=== PATIENT | male | born 1945 | race Caucasian/White ===

== ENCOUNTER 2017-07-01 09:23 | Outpatient (CLI) | payer MEDICARE ==
--- NOTE | 2017-07-01 11:52 | RAD ---
CERVICAL SPINE: A total of 6 views. INDICATION: Spondylosis of cervical spine. Moderate degenerative changes are noted. There is mild posterior listhesis of C4 on C5 measured at a pproximately 3-4 mm. Loss of disk space at C3-4 and C4-5. Mild anterior osteophytes. Posterior spo ndylitic change. No evidence of vertebral body compression. The posterior listhesis at C4-5 appears to reduce with extension. No significant change with flexion . IMPRESSION: Moderate degenerative changes of the cervical spine most prominent at C3-4 and C4-5 levels. There is mild posterior subluxation at C4-5 as described. POS: [facility]
== END 2017-07-01 09:24 | disposition home or self-care (01) ==
LOC: RAD 09:23
PROVIDERS: ATTEND Specialist
DX: M47.812 Spondylosis without myelopathy or radiculopathy, cervical region (principal); S13.150A Subluxation of C4/C5 cervical vertebrae, initial encounter
CPT/HCPCS: 72050

== ENCOUNTER 2017-09-08 15:59 | Inpatient (IN) | payer MEDICARE ==
[2017-09-08 17:08] VITALS: BMI 24.6
[2017-09-08] MEDS ORDERED: Loratadine 10 MG TAB PO PRN (17:13)
[2017-09-08] MEDS ORDERED: hydrALAZINE 20 MG/ML VIAL SLOW IVP PRN (17:13)
[2017-09-08] MEDS ORDERED: Senokot 8.6 MG TAB PO PRN (17:13)
[2017-09-08] MEDS ORDERED: Calcium Carbonate 500 MG ChewTAB PO PRN (17:13)
[2017-09-08] MEDS ORDERED: traMADol HCl 50 MG TAB PO PRN (17:13)
[2017-09-08] MEDS ORDERED: Diabetic Tussin 200 MG/10 ML UDCUP PO PRN (17:13)
[2017-09-08] MEDS ORDERED: Ondansetron HCl/PF 4 MG/2 ML Vial IVP PRN ×2 (17:13)
[2017-09-08] MEDS ORDERED: Mag-Al 1200 mg/1200 mg/30 ML UDCUP PO PRN (17:13)
[2017-09-08] MEDS ORDERED: cloNIDine 0.1 MG TAB PO PRN (17:13)
[2017-09-08] MEDS ORDERED: Acetaminophen 325 MG TAB PO PRN (17:13)
[2017-09-08] MEDS ORDERED: Temazepam 15 MG CAP PO PRN (17:13)
[2017-09-08] MEDS ORDERED: Bisacodyl 5 MG TAB PO PRN (17:13)
[2017-09-08] MEDS ORDERED: Benzonatate 100 MG CAP PO PRN (17:13)
[2017-09-08 17:49] LABS: #Eosinphils 0.1 thou/uL (0.0-0.7); #Lymphocytes 1.5 thou/uL (1.20-3.40); #Monocytes 0.7 thou/uL (0.11-0.59); #Neutrophils 5.2 thou/uL (1.40-6.50); %Basophils 0.4 % (0.0-1.0); %Eosinophils 1.2 % (0.0-10.0); %Lymphocytes 20.3 % (21.0-51.0); %Monocytes 9.1 % (0.0-10.0); %Neutrophils 69.1 % (42.0-75.0); Hemoglobin 14.9 g/dL (14.0-18.0); Mean Corpuscular HGB CONC 33.5 g/dL (32.0-36.0); Mean Corpuscular Hemoglobin 34.2 pg (27.0-31.0); Platelet Count 376 thou/uL (130-400); RBC Distribution Width 11.6 % (11.5-14.5); Red Blood Cell (RBC) Count 4.35 mill/uL (4.70-6.10); White Blood Cell (WBC) Count 7.5 thou/uL (4.8-10.8)
[2017-09-08 18:10] LABS: ALT (SGPT) 24 U/L (8-55); AST (SGOT) 21 U/L (5-34); Albumin 4.2 g/dL (3.4-4.8); Alkaline Phosphatase 73 U/L (40-150); Anion Gap 13 mmol/L (10-20); BUN (Urea Nitrogen) 13 mg/dL (8.4-25.7); Bilirubin, Total 0.6 mg/dL (0.2-1.2); Calc. Creatinine Clearance 80 mL/min (70-130); Calcium 10.3 mg/dL (7.8-10.44); Carbon Dioxide 27 mmol/L (23-31); Chloride 95 mmol/L (98-107); Estimated GFR-MDRD 71; Globulin 3.1 g/dL (2.4-3.5); Glucose 119 mg/dL (83-110); Potassium 4.2 mmol/L (3.5-5.1); Protein, Total 7.3 g/dL (5.8-8.1); Sodium 131 mmol/L (136-145)
[2017-09-08] MEDS ORDERED: Ketorolac Tromethamine 30 MG/ML VIAL IVP PRN (18:44)
--- NOTE | 2017-09-08 19:22 | HP ---
DATE OF ADMISSION: 09/08/2017 PRIMARY CARE PHYSICIAN: Out of town. CHIEF COMPLAINT: Worsening pain in the neck with headache and imbalance. HISTORY OF PRESENT ILLNESS: Mr. Montero is a very pleasant 71-year-old male with history of cancer of the mouth, status post surgery and radiation as well as history of hypertension and hypothyroidis m, who presented to the surgical floor as a direct admit from Dr. Roes's office. History is m ainly obtained by the patient himself and supplemented by his . According to his , Mr. Montero has been having neck pain for quite several months now. They lagos ve seen Neurosurgery, Dr. Mcpherson in the clinic and were referred to Pain Medicine, Dr. Rose and Dr. Valdes. They report that they had MRI done of his neck in April of this year and he was t old that he had some nerve pain issues, possibly myelopathy. He unfortunately also fell off a ladder a few weeks ago with worsening of the pain. Since he has been seeing Dr. Rose, he has receiv ed some injections in the neck, at least 3 times, but he has severe worsening of his neck pain in the last week or so. He was seen at the office of Dr. Rose today and he is being admitted for fu rther workup including imaging studies and neurosurgical consultations. The patient describes that his neck starts to hurt if he is sitting up more than 2-3 hours at a time. It starts in the back of his neck and extends upward and towards the front involving the head and h e would start to get a very bad headache. Whenever his head starts to hurt, he has problem with his balance. Otherwise, he denies any dizziness. He denies any numbness, tingling or paresthesias in ar ms or legs. He denies any incontinence of the bowel or bladder. He denies any recent illnesses. Hi s current level of pain is about 2-3/10 in intensity. PAST MEDICAL HISTORY: 1. Hypertension. 2. 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 He is status post surgical e xcision involving half of his tongue as well as radiation treatment. 3. Hypothyroidism due to removal of the thyroid, which was affected by radiation. PAST SURGICAL HISTORY: 1. Thyroid removal. 2. Cataract surgery. ALLERGIES: No known medication allergies. CURRENT MEDICATIONS: Levothyroxine 137 mcg daily, Norvasc 10 mg daily, lisinopril/hydrochlorothiazid e 20/25 mg daily, aspirin 81 mg daily, Tylenol with codeine No. 4 every 8 hours as needed. SOCIAL HISTORY: He is an ex-smoker, stopped smoking more than 10 years ago. He drinks alcohol occas ionally. No drug abuse. He is and lives with his . FAMILY HISTORY: Significant for heart murmur in his mother who peacefully in her late 70s. His father had esophageal cancer who was also a smoker. REVIEW OF SYSTEMS: A 12-point review of systems was done and is negative except for those mentioned in the history and physical. Constitutional: Weight loss or gain, ability to conduct usual activiti es. Skin: Rash, itching. Eyes: Double vision, pain. ENT/Mouth: Nose bleeding, neck stiffness, p ain, tenderness. Cardiovascular: Palpitations, dyspnea on exertion, orthopnea. Respiratory: Short ness of breath, wheezing, cough, hemoptysis, fever or night sweats. Gastrointestinal: Poor appetite , abdominal pain, heartburn, nausea, vomiting, constipation or diarrhea. Genitourinary: Urgency, fr equency, dysuria, nocturia. Musculoskeletal: Pain, swelling. Neurologic/Psychiatric: Anxiety, dep ression. Allergy/Immunologic: Skin rash, bleeding tendency. LABORATORY DATA: Labs were ordered upon presentation and includes a CBC, which shows WBC 7.5, hemogl obin 14.9, platelet count of 376,000. Serum chemistry shows slightly low sodium at 131 with chloride of 95, blood sugar 119, otherwise unremarkable. PHYSICAL EXAMINATION: VITAL SIGNS: Temperature 97.9, pulse of 78, respirations 18, saturating 93%-95% on room air, blood p ressure 155/82. GENERAL: No acute distress, awake, alert, oriented x3, very pleasant, appears well nourished and hea lthy. HEENT: Mucous membranes are slightly dry. He is status post surgery with removal of half of his ton taqueria. Head is normocephalic, atraumatic. Pupils are equal and reactive to light and accommodation. Extraocular movements are intact. NECK: Supple without any lymphadenopathy, JVD or bruit. CHEST: Clear to auscultation without any wheezing, rales or rhonchi. Rate and rhythm are regular wi thout any murmur, rubs or gallops. ABDOMEN: Soft, nontender, nondistended with positive bowel sounds. EXTREMITIES: Free of any cyanosis, clubbing or edema. NEUROLOGIC: Nonfocal. SKIN: Free of any rashes or bruises. Feels warm and dry to touch. PSYCHIATRIC: Normal affect. IMPRESSION AND PLAN: 1. Intractable neck pain. The patient likely has cervical myelopathy. He had an x-ray done of his cervical spine in June that I am able to view, which shows degenerative changes in the cervical spin e, most likely C3-C4 and C4-C5 with mild posterior subluxation at C4 and C5. At this time, he is nellie ng admitted for pain management and pain control. We will get an MRI of his cervical and thoracic sp ine for further evaluation as he has significant worsening of his pain in the last week or so. We wi ll also request consultation with Neurosurgery Team. He has been seen in Dr. Mcpherson's office in the p ast. We will also consult his referring physician, Dr. Rose for pain management as well. 2. Hypothyroidism. We will restart his levothyroxine. 3. Hypertension, currently controlled. Resume his Norvasc, lisinopril and hydrochlorothiazide. 4. History of cancer of the mouth and tongue status post surgery and radiation. The patient is enco uraged to drink to maintain adequate oral intake, which he does at home. He will be on a soft pureed diet. 5. Add deep venous thrombosis and gastrointestinal prophylaxis and p.r.n. medications. DISPOSITION: Mr. Montero is currently being admitted to the hospital as a direct admit from his [facility] specialist for pain management of intractable neck pain and further evaluation of the cau se. Estimated length of stay is at least 2-3 midnights.
[2017-09-08] MEDS: Famotidine 20 MG TAB PO SCH (20:26)
[2017-09-09] MEDS: HYDROcodone/Acetaminophen 5/325 mg Tablet PO PRN ×3 (00:26→22:05)
[2017-09-09] MEDS: Lorazepam 1 MG TAB PO PRN ×2 (00:27→22:05)
[2017-09-09 04:33] LABS: Anion Gap 10 mmol/L (10-20); BUN (Urea Nitrogen) 11 mg/dL (8.4-25.7); Calc. Creatinine Clearance 98 mL/min (70-130); Calcium 9.7 mg/dL (7.8-10.44); Carbon Dioxide 27 mmol/L (23-31); Chloride 99 mmol/L (98-107); Estimated GFR-MDRD 90; Glucose 99 mg/dL (83-110); Potassium 4.2 mmol/L (3.5-5.1); Sodium 132 mmol/L (136-145)
[2017-09-09 05:43] LABS: Band 3 % (5-11); Eosinophils 2 % (0-10); Hemoglobin 14.2 g/dL (14.0-18.0); Lymphocytes 30 % (21-51); MDiff Complete? YES; Mean Corpuscular HGB CONC 34.5 g/dL (32.0-36.0); Mean Corpuscular Hemoglobin 35.5 pg (27.0-31.0); Mean Platelet Volume 6.6 fL (7.4-10.4); Monocytes 3 % (0-10); Neutrophil 62 % (42-75); PLT Morphology Comment Appears Adequate; Platelet Count 323 thou/uL (130-400); RBC Distribution Width 11.6 % (11.5-14.5); White Blood Cell (WBC) Count 6.7 thou/uL (4.8-10.8)
[2017-09-09] MEDS: Levothyroxine Sodium 25 MCG TAB PO SCH (05:55)
[2017-09-09] MEDS: Levothyroxine Sodium 112 MCG TAB PO SCH (05:55)
[2017-09-09] MEDS ORDERED: Aspirin 81 mg Enteric Coated Tablet PO SCH (09:00)
[2017-09-09] MEDS: Amlodipine 10 MG TAB PO SCH (09:10)
[2017-09-09] MEDS: Lisinopril/Hydrochlorothiazide 20/25 mg Tablet PO SCH (09:10)
[2017-09-09] MEDS: Famotidine 20 MG TAB PO SCH ×2 (09:10→20:49)
--- NOTE | 2017-09-09 09:28 | CT ---
CT OF THE CERVICAL SPINE WITHOUT CONTRAST: DATE: 06/09/17. HISTORY: Neck pain, possible fall. TECHNIQUE: Serial axial CT imaging provided at 2.5 mm intervals from the skull base through the lung apices with out contrast. Coronal and sagittal reformatted imaging obtained. FINDINGS: The craniocervical junction is intact. There is prominent degenerative change at the atlantoaxial in terspace. Occipital condyles, dens, and C1-2 articulation demonstrate no acute abnormality. At the cervicothoracic junction, there is normal alignment. There is minimal retrolisthesis at C3-4 and C4- 5. Evaluation for central canal and/or neural foraminal stenosis is limited on routine CT. Imaged lung apices demonstrate biapical mild pleural thickening with calcification and adjacent subpl eural cystic change. There is scattered atherosclerotic calcification throughout the carotid system bilaterally as well as involving the proximal great vessels in a multifocal nature. Postoperative cl ips are seen within the neck superiorly bilaterally. C2-3: There is disk space narrowing and degenerative end plate change with bilateral mild uncoverteb ral osteophyte formation. No osseous cause of significant central canal or neural foraminal stenosis . C3-4: There is disk space narrowing and degenerative end plate change with bilateral facet and uncov ertebral osteophyte formation, left greater than right. There is at least moderate left neural roberto inal stenosis. No osseous cause of significant central canal or right neural foraminal stenosis. C4-5: There is disk space narrowing and bilateral facet/uncovertebral osteophyte formation with mild /moderate bilateral neural foraminal stenosis, right greater than left. No osseous cause of signific ant central canal stenosis. C5-6: Disk space narrowing and degenerative end plate change present. Facet and uncovertebral osteo phyte formation on the right causes mild to moderate right neural foraminal stenosis. No osseous cau se of significant central canal or left neural foraminal stenosis. C6-7: No osseous cause of significant central canal or neural foraminal stenosis. C7-T1: Disk space narrowing and degenerative end plate change noted. Bilateral uncovertebral osteop hyte, left greater than right, with mild to moderate left neural foraminal stenosis and mild right ne ural foraminal stenosis suspected. Degenerative end plate change and disk space narrowing also noted at T2-3. No worrisome lytic or jeanne stic bone lesion. No prevertebral soft tissue swelling. IMPRESSION: Multilevel degenerative change noted as described above. POS: [facility]
--- NOTE | 2017-09-09 12:54 | PDOC.PN ---
- Subjective Encounter Start Date: 09/09/17 Encounter Start Time: 12:53 Subjective: neck pain controlled w Po meds.feels better -: no new complaints -: has a stye r eye - Objective MAR Reviewed: Yes Vital Signs & Weight: Vital Signs (12 hours) Temp Pulse Resp BP BP BP Pulse Ox 09/09/17 08:03 94.6 F L 62 14 147/96 H 97 09/09/17 08:00 94.6 F L 62 14 09/09/17 04:00 97.5 F L 68 18 138/87 96 09/09/17 01:50 163/90 H 09/09/17 01:45 97.6 F 77 18 163/90 H 98 Weight Weight 192 lb I&O: 09/08/17 09/09/17 09/10/17 06:59 06:59 06:59 Intake Total 480 Output Total 0 Balance 480 Result Diagrams: 09/09/17 03:56 09/09/17 03:56 Radiology Reviewed by me: Yes (Cervical spinal CT-degenerative changes only) Phys Exam - Physical Examination Constitutional: NAD HEENT: PERRLA, moist MMs, sclera anicteric, oral pharynx no lesions small stye inner corner r eye,no discharge Neck: no nodes, no JVD, supple, full ROM Respiratory: no wheezing, no rales, no rhonchi, clear to auscultation bilateral Cardiovascular: RRR, no significant murmur, no rub Gastrointestinal: soft, non-tender, no distention, positive bowel sounds Musculoskeletal: no edema, pulses present Neurological: non-focal, normal sensation, moves all 4 limbs Psychiatric: normal affect, A&O x 3 Skin: no rash Dx/Plan (1) Intractable pain Code(s): R52 - PAIN, UNSPECIFIED Status: Acute (2) Cervical myelopathy Code(s): G95.9 - DISEASE OF SPINAL CORD, UNSPECIFIED Status: Acute (3) HTN (hypertension) Code(s): I10 - ESSENTIAL (PRIMARY) HYPERTENSION Status: Acute (4) Hypothyroid Code(s): E03.9 - HYPOTHYROIDISM, UNSPECIFIED Status: Acute (5) H/O oral cancer Code(s): Z85.819 - PRSNL HX OF MALIG NEOPLM OF UNSP SITE LIP,ORAL CAV,& PHARYNX Status: Acute - Plan plan discussed w/ family, out of bed/ambulate, DVT proph w/SCDs cont pain meds.pain medicine consulted -: MRI results nored for cervical spine-no critical narrowing -: no spinal cord compression.Awaiting NS recs -: home meds as below. BP controlled.monitor * . Review of Systems - Review of Systems Constitutional: negative: fever, chills, sweats, weakness, malaise, other ENT: negative: Ear Pain, Ear Discharge, Nose Pain, Nose Discharge, Nose Congestion, Mouth Pain, Mouth Swelling, Throat Pain, Throat Swelling, Other Respiratory: negative: Cough, Dry, Shortness of Breath, Hemoptysis, SOB with Excertion, Pleuritic Pain, Sputum, Wheezing Cardiovascular: negative: chest pain, palpitations, orthopnea, paroxysmal nocturnal dyspnea, edema, light headedness, other Gastrointestinal: negative: Nausea, Vomiting, Abdominal Pain, Diarrhea, Constipation, Melena, Hematochezia, Other Genitourinary: negative: Dysuria, Frequency, Incontinence, Hematuria, Retention , Other Musculoskeletal: negative: Neck Pain, Shoulder Pain, Arm Pain, Back Pain, Hand Pain, Leg Pain, Foot Pain, Other Skin: negative: Rash, Lesions, Cong, Bruising, Other Neurological: negative: Weakness, Numbness, Incoordination, Change in Speech, Confusion, Seizures, Other - Medications/Allergies Allergies/Adverse Reactions: Allergies Allergy/AdvReac Type Severity Reaction Status Date / Time No Known Allergies Allergy Unverified 09/08/17 17:47 Medications: Current Medications Acetaminophen (Tylenol) 650 mg PO Q4H PRN PRN Reason: Headache/Fever or Pain Last Admin: 09/08/17 18:01 Dose: 650 mg Hydrocodone Bitart/Acetaminophen (Magnolia 5/325) 1 tab PO Q4H PRN PRN Reason: Moderate Pain (4-6) Last Admin: 09/09/17 09:15 Dose: 1 tab Hydrocodone Bitart/Acetaminophen (Magnolia 5/325) 2 tab PO Q4H PRN PRN Reason: Severe Pain (7-10) Last Admin: 09/09/17 00:26 Dose: 2 tab Al Hydroxide/Mg Hydroxide (Maalox) 30 ml PO Q6H PRN PRN Reason: Heartburn or Indigestion Amlodipine Besylate (Norvasc) 10 mg PO DAILY SHEREE Last Admin: 09/09/17 09:10 Dose: 10 mg Benzonatate (Tessalon) 100 mg PO Q4H PRN PRN Reason: Cough Bisacodyl (Dulcolax) 10 mg PO DAILYPRN PRN PRN Reason: Constipation Calcium Carbonate (Tums) 1,000 mg PO Q4H PRN PRN Reason: Heartburn or Indigestion Clonidine (Catapres) 0.1 mg PO Q4H PRN PRN Reason: Systolic BP > 160 Last Admin: 09/09/17 01:50 Dose: 0.1 mg Enoxaparin Sodium (Lovenox) 40 mg SC 0900 [facility] Famotidine (Pepcid) 20 mg PO BID [facility] Last Admin: 09/09/17 09:10 Dose: 20 mg Guaifenesin (Robitussin Sf) 200 mg PO Q4H PRN PRN Reason: Cough Lisinopril/HCTZ (Prinizide 20-25) 1 tab PO DAILY [facility] Last Admin: 09/09/17 09:10 Dose: 1 tab Hydralazine HCl (Apresoline) 10 mg SLOW IVP Q4H PRN PRN Reason: Systolic BP > 170 Ketorolac Tromethamine (Toradol) 15 mg IVP Q12H PRN PRN Reason: Mild Pain (1-3) Stop: 09/13/17 18:45 Lactulose (Lactulose) 10 gm PO DAILYPRN PRN PRN Reason: Constipation Levothyroxine Sodium (Synthroid) 112 mcg PO 0600 [facility] Last Admin: 09/09/17 05:55 Dose: 112 mcg Levothyroxine Sodium (Synthroid) 25 mcg PO 0600 [facility] Last Admin: 09/09/17 05:55 Dose: 25 mcg Loratadine (Claritin) 10 mg PO DAILYPRN PRN PRN Reason: Sinus Symptoms Lorazepam (Ativan) 1 mg PO Q4H PRN PRN Reason: Anxiety/Agitation Last Admin: 09/09/17 00:27 Dose: 1 mg Ondansetron HCl (Zofran) 4 mg IVP Q6H PRN PRN Reason: Nausea/Vomiting Senna (Senokot) 2 tab PO HSPRN PRN PRN Reason: Constipation Temazepam (Restoril) 15 mg PO HSPRN PRN PRN Reason: Insomnia Tramadol HCl (Ultram) 50 mg PO Q4H PRN PRN Reason: Moderate Pain (4-6)
--- NOTE | 2017-09-09 13:50 | MRI ---
MRI CERVICAL SPINE WITH AND WITHOUT GADOLINIUM CONTRAST: HISTORY: Neck pain with bilateral radiculopathy. FINDINGS: Vertebral body heights are maintained. There is desiccation of all of the intervertebral disks. Dis cogenic end plate changes are present within the bone marrow about the disk spaces. C2-3: Osteophytosis with moderate stenosis of left neural foramen. C3-4: Disk space narrowing. Minimal degenerative retrolisthesis. Posterior osteophyte/disk complex with circumferential degenerative changes. Moderate stenosis of the central canal. Moderate right and severe left foraminal stenoses. No abnormal signal within the spinal cord. C4-5: Disk space narrowing. Minimal degenerative retrolisthesis. Posterior osteophyte/disk complex . Circumferential degenerative changes with severe stenosis of the central canal and each neural fo ramen. No abnormal signal within the spinal cord. C5-6: Mild osteophytosis. Thecal sac is patent. Moderate right and severe left foraminal stenoses. C6-7: Osteophytosis. Severe stenosis left neural foramen. C7-T1: Disk space narrowing. Minimal osteophyte/disk complex. Moderate left foraminal stenosis. IMPRESSION: Multilevel degenerative changes throughout the cervical spine, including severe central canal and for aminal stenoses as detailed above. No evidence of myelomalacia. POS: [facility]
[2017-09-09] MEDS: Enoxaparin Sodium 40 MG/0.4 ML SYRINGE SC SCH (13:53)
--- NOTE | 2017-09-09 14:11 | MRI ---
MRI THORACIC SPINE NONCONTRAST: History: Back pain. FINDINGS: Vertebral body height and alignment are maintained. Spinal cord has a normal appearance throughout th e cervical spine without abnormal compression, expansion, or abnormal signal. No abnormal areas of co ntrast enhancement. Neural foramina are patent. Very mild posterior disc bulged are present at the T2-3 level and the C6-7, C7-8, and T11-12 levels. No significant compromise of the central canal. IMPRESSION: Very mild degenerative changes of the thoracic spine. No focal disc herniation or nerve root compress ion. POS: [facility]
--- NOTE | 2017-09-09 23:09 | HP ---
DATE OF SERVICE: 09/09/2017 HISTORY OF PRESENT ILLNESS: Mr. Montero states his pain has been better managed today. He reports adequate pain control with [place] 5/325. He had 1 dose of 2 tablets at around midnight and then late r, he had 1 tablet at 9:15 this morning. He has required no further pain medications throughout the day. Mr. Montero states he has been ambulatory around the room without any problem today. MRI of the cervical spine showed multilevel degenerative changes with multilevel central and foraminal steno sis. There was moderate central stenosis, moderate right and severe left foraminal stenosis at C3-C4 . There was severe stenosis centrally and bilateral foraminal stenosis at C4-C5. No abnormal cord c hanges per report. PHYSICAL EXAMINATION: GENERAL: The patient is alert and oriented x3. He is ambulatory with a stable gait in the room. Cu rrent pain level is 2/10. BACK: C-spine range of motion is limited with extension and rotation to each side. He reports poste rior neck pain with these movements. Cervical flexion is intact. He reports posterior neck pain wit h full cervical flexion. NEUROLOGIC: Strength in the upper and lower extremities is intact and symmetric. Reflexes in the up per and lower extremities are symmetric. There is no clonus. ASSESSMENT: 1. Intractable neck pain. 2. C3-C4, C4-C5 cervical stenosis with possible myelopathy. PLAN: Mr. Montero's pain has been better managed today. We will continue the current pain medicin e regimen. We are awaiting Neurosurgery evaluation and suggestions. We will continue to follow.
--- NOTE | 2017-09-10 01:59 | CON ---
DATE OF CONSULTATION: 09/09/2017 Klevin Sam PA-C, dictating for Quinn Rouse MD This is a 50-minute initial patient consult in which greater than 50% of the exam was spent counselin g and coordinating patient's care. The remainder of the exam was spent in review of patient's medica l records and appropriate imaging studies. CHIEF COMPLAINT: Posterior neck pain radiating into the bilateral shoulders with some bilateral uppe r extremity weakness. HISTORY OF PRESENT ILLNESS: Mr. Montero is a pleasant 71-year-old male who was admitted to [facility] with the above complaints. His is at his bedside and helps to interpret some of th e exam. In 2002, the patient underwent mouth and tongue resection for oral cancer related to tobacco abuse. The patient has restrained from tobacco since that time. He does note a slight difficulty w ith swallowing, but more so as he has had part of his tongue removed and is on a mechanical soft diet . Patient did fall from a ladder in 04/2017 resulting in increased neck pain and shoulder pain, but otherwise he denies fall. He has had some weakness in the arms, but states this has been due to deco nditioning rather than he believes neurologic deficit. He has been under the care of Dr. Keisha monroy nd receiving steroid injections. He denies any myelopathic features on history including no increase d fall. Does not require use of assistive device for ambulation, burning in the hands, dropping obje cts more frequently or dragging either of the legs when walking. He does note a little bit of diffic ulty with handwriting and some difficulty occasionally with buttoning buttons, but states he has full sensation in the bilateral hands as well. He is on 81 mg aspirin for cardiac prophylaxis, but does not have any type of cardiac history. He has a negative Lhermitte sign on history or exam. Review o f patient's cervical spine CT and MRI shows some central canal stenosis C3-C4, C4-C5 and C5-C6. Rivera louie, there is no severe central canal stenosis and no T2 signal abnormality. There does not appear t o be any acute fracture. There is evidence of extensive surgical resection of his tongue and floor o f the mouth with evidence of more than likely scar tissue in the anterior cervical spine. PHYSICAL EXAMINATION: The patient is awake, alert, and appropriate. He is slightly difficult to und erstand and have some slurred speech given his previous surgical history and his is able to prov sophy some interpretation and the is able to interpret for the patient. He has mild weakness in t he bilateral hand intrinsics worse on the right than the left as well as bilateral mild triceps weakn ess. Otherwise, he has full strength in the bilateral upper and bilateral lower extremities. He has intact sensation to light touch throughout. He has no worrisome myelopathic features on exam includ ing negative Cee's bilaterally and no increased tone. He reports that he does not use an assist allyssa device for ambulation and does not feel unsteady on his feet. He appears to have a slight amount of decreased range of motion given some scar tissue formation to the anterior cervical spine. He do es have a large incision from the chin to the sternum consistent with his previous mouth surgery. IMPRESSION AND DIAGNOSES: 1. Neck pain with bilateral shoulder pain, cervical spinal stenosis. 2. History of tongue and mouth cancer, resected in 2002. PLAN: I have discussed the patient's case and imaging with Dr. Rouse. I have also discussed the po ssibility of surgery with the patient and his , which could include a posterior C3 to C6 laminect omies and fusion. The patient does not have clear evidence of myelopathy at this time. We may be ab le to hold on surgical intervention. I did, however, discuss the procedure with the patient and his at great length and again, Dr. Rouse will see them in the morning to discuss the final course i n treatment. Certainly, given the fact that the patient has neck pain, continued pain management may be a good option for him, but again, we will discuss this tomorrow. We would like him to hold his 8 1 mg aspirin at this time, but it is okay to continue Lovenox for now. Please call with any question s or changes in patient's neurologic status. Otherwise, we will discuss his further treatment option s in the morning. The patient and his were pleased with this workup at this time.
[2017-09-10] MEDS: Levothyroxine Sodium 112 MCG TAB PO SCH (06:01)
[2017-09-10] MEDS: Levothyroxine Sodium 25 MCG TAB PO SCH (06:01)
[2017-09-10] MEDS: HYDROcodone/Acetaminophen 5/325 mg Tablet PO PRN (08:18)
[2017-09-10] MEDS: Lisinopril/Hydrochlorothiazide 20/25 mg Tablet PO SCH (08:19)
[2017-09-10] MEDS: Enoxaparin Sodium 40 MG/0.4 ML SYRINGE SC SCH (08:20)
[2017-09-10] MEDS: Famotidine 20 MG TAB PO SCH (08:20)
[2017-09-10] MEDS: Amlodipine 10 MG TAB PO SCH (08:20)
[2017-09-10 11:16] VITALS: TEMP 97.6
--- NOTE | 2017-09-10 12:43 | DIS ---
DATE OF ADMISSION: 09/08/2017 DATE OF DISCHARGE: 09/10/2017 CONDITION AT THE TIME OF DISCHARGE: Stable and improved. DISCHARGE DIAGNOSES: 1. Neck pain secondary to cervical osteoarthritis and cervical spinal stenosis, mild. 2. History of tongue and mouth cancer, status post resection in 2002. 3. History of hypothyroidism. 4. Hypertension. DISCHARGE MEDICATIONS: Remain the same as admission medication. Resume home medications. Please se e admission H and P for details. New medications: Tramadol 50 mg every 4 hours p.r.n. and Carver as prescribed by pain medication specialists. CONSULTATIONS INHOUSE: 1. Pain medicine. 2. Neurosurgery, Dr. Rouse. PROCEDURES DONE IN THE HOSPITAL: Include, 1. CT scan of the cervical spine, which shows degenerative changes and disk narrowing at multiple le vels without any bony lesions or significant cord compression. 2. MRI of the cervical and thoracic spine, which once again showed degenerative changes, which are m ild without any focal disk herniation or nerve root compression. He does have severe central canal a nd foraminal stenosis in the cervical spine. No evidence of myelomalacia. HISTORY OF PRESENTING ILLNESS: Mr. Montero was admitted as a direct admit from pain medicine clini c for intractable neck pain given history of cervical myelopathy and degenerative changes. He is und er the care of Dr. Valdes, who wanted him to be admitted for pain control and Neurosurgery consult ations. He was hemodynamically stable upon presentation, and his pain was actually very well control led. He was admitted and underwent various imaging studies as above. Neurosurgery saw the patient a nd they had no recommendation for surgery at this time, as his disease is very mild. He was very wel l managed on oral pain medications including Carver, tramadol, and Tylenol in the hospital. He was cl eared for discharge from neurosurgical standpoint and there were no other medical necessities for him to stay in the hospital. So, he is being discharged back home. He will follow up with Dr. Jacques simpson in the clinic for continuation of pain management. He was seen and examined prior to discharge. His vital signs are stable. Blood pressure 126/72, tem perature 97.2, heart rate 72, saturating 95% on room air, respirations 18. No acute distress, awake, alert, oriented x3. He is ambulatory and has good appetite. Chest is clear to auscultation without any wheezing, rales, or rhonchi. Rate and rhythm is regular without any murmur, rubs, or gallops. LABORATORY EXAMINATION: Serum chemistries are unremarkable except for slightly low sodium at 132. Discharge plan was discussed with the patient and his , who verbalized understanding. Total time spent in the discharge of this patient 32 minutes including [id number] interaction and d iscussion with multiple specialists involved in his care, who have cleared him for discharge.
[2017-09-10] MEDS ORDERED: Sodium Chloride 0.9% 500 ML IV SCH (13:15)
[2017-09-10 14:49] VITALS: BP 124/75
--- NOTE | 2017-09-10 20:55 | PRG ---
DATE OF SERVICE: 09/10/2017 This is a 50 minute initial hospital visit note in which 50 minutes spent in review the imaging recor d, evaluation, examination of patient, and formulation of plan. Greater than 50% of the time was spe nt in counseling on [place] Montero. CHIEF COMPLAINT: Initial concern of increased neck pain and mild myelopathy with cervical stenosis. HISTORY OF PRESENT ILLNESS: I reviewed the notes of my colleague Kelvin Sam PA-C, and also disc ussed the case with Dr. Valdes. Mr. Montero is a very pleasant 71-year-old gentleman who fell a few months ago and ever since has had neck pain. This does not radiate into the extremities, but he has noticed that he has been somewhat hesitant on his feet, his gait since his fall as he states he does not want to fall again. He has minimal fine motor incoordination otherwise remains very high fu nctioning. Injection therapy into his neck initially had brought improvements in symptoms, but recen tly he had increased pain and also had reported to Dr. Valdes approximately concern of ambulatory dysfunction. On talking with the patient, he feels like it is really just increased pain. Neverthel ess, his x-rays demonstrate no worrisome subluxation. He has a slight retrolisthesis at C4-C5 and on MRI, moderate stenosis and the majority of the segments from C3-C6 with moderate to severe at C5-C6, although again the patient's myelopathic features are quite mild. PHYSICAL EXAMINATION: He is alert, appropriate. He has good strength. I agreed with our colleagues exams that he has good strength throughout his upper and lower extremities. I should also note that he has a history of oral and neck cancer and has had surgery, radiation and is on a pureed diet long standing. He ambulates without an assistive device and does not have an antalgic gait. IMPRESSION, REPORT AND PLAN: Let the patient know that at this point, I would not recommend any surg ical intervention. The risk of a posterior decompression fusion here brings with it dysphagia and I have let the patient know this. To him, this is potentially and I do not blame him, intolerable cons equence of any surgery on his neck. I certainly would not recommend any surgery anteriorly given his history of surgery, tumor resection and subsequent radiation. I would wait until his symptoms becom e more progressive in regards to his myelopathy, which they are now. He is going to pursue further c onservative management to include injection therapy and denervation or ablation procedures. I have c onferred with Dr. Valdes in this regard. DIAGNOSES: 1. Neck pain. 2. Cervical stenosis.
== END 2017-09-10 15:30 | disposition home or self-care (01) | DRG 552 ==
LOC: SJJU 16:20 → OBSVTOIN 17:13
PROVIDERS: ADMIT Family Medicine; ATTEND Family Medicine
DX: M48.02 Spinal stenosis, cervical region (principal); M47.22 Other spondylosis with radiculopathy, cervical region; I10 Essential (primary) hypertension; E89.0 Postprocedural hypothyroidism; Z85.819 Personal history of malignant neoplasm of unspecified site of lip, oral cavity, and pharynx; Z79.82 Long term (current) use of aspirin; Z79.899 Other long term (current) drug therapy
CPT/HCPCS: 36415; 72125; 72156; 72157; 80048; 80053; 85025; G8978-GP-CH; G8979-GP-CH; G8980-GP-CH; G8987-GO-CI; G8988-GO-CI; G8989-GO-CI; J0360; J1650

== ENCOUNTER 2017-12-12 22:07 | Emergency (ER) | payer MEDICARE ==
[2017-12-12 23:04] LABS: #Eosinphils 0.1 thou/uL (0.0-0.7); #Lymphocytes 1.7 thou/uL (1.20-3.40); #Monocytes 0.8 thou/uL (0.11-0.59); #Neutrophils 6.9 thou/uL (1.40-6.50); %Basophils 0.3 % (0.0-1.0); %Eosinophils 0.9 % (0.0-10.0); %Lymphocytes 17.4 % (21.0-51.0); %Monocytes 8.2 % (0.0-10.0); %Neutrophils 73.2 % (42.0-75.0); Mean Corpuscular HGB CONC 32.8 g/dL (32.0-36.0); Mean Platelet Volume 6.2 fL (7.4-10.4); Platelet Count 322 thou/uL (130-400); RBC Distribution Width 11.7 % (11.5-14.5); Red Blood Cell (RBC) Count 4.84 mill/uL (4.70-6.10); White Blood Cell (WBC) Count 9.5 thou/uL (4.8-10.8)
--- NOTE | 2017-12-12 23:06 | RAD ---
CHEST TWO VIEWS: HISTORY: Dyspnea and shortness of breath. COMPARISON: None. FINDINGS: There is an abnormal mass in the left upper lobe. There is scarring in both lung apices. The lungs are hyperinflated. Likely calcified granuloma, left lung base. IMPRESSION: Findings concerning for mass in the left upper lobe. Nonemergent CT chest recommended. CODE: LN POS: [facility]
[2017-12-12 23:24] LABS: ALT (SGPT) 26 U/L (8-55); AST (SGOT) 21 U/L (5-34); Albumin 4.1 g/dL (3.4-4.8); Alkaline Phosphatase 75 U/L (40-150); Anion Gap 13 mmol/L (10-20); BUN (Urea Nitrogen) Less than 4 mg/dL (8.4-25.7); Bilirubin, Total 0.9 mg/dL (0.2-1.2); Calc. Creatinine Clearance 0 mL/min (70-130); Calcium 9.6 mg/dL (7.8-10.44); Carbon Dioxide 29 mmol/L (23-31); Chloride 92 mmol/L (98-107); Estimated GFR-MDRD 71; Globulin 3.1 g/dL (2.4-3.5); Glucose 102 mg/dL (83-110); Potassium 3.7 mmol/L (3.5-5.1); Protein, Total 7.2 g/dL (5.8-8.1); Sodium 130 mmol/L (136-145)
[2017-12-12 23:28] LABS: Troponin I Less than 0.010 ng/mL (< 0.028)
[2017-12-13] MEDS ORDERED: ISOVUE-370 76%-LOCM 1 ML ONE (08:27)
--- NOTE | 2017-12-13 08:53 | CT ---
PRELIMINARY REPORT/[facility]/EMERGENCY AFTER HOURS PROCEDURE: EXAM: CT Angiography Chest With Intravenous Contrast CLINICAL HISTORY: 72 years old, male; Signs and symptoms; Shortness of breath TECHNIQUE: Axial computed tomographic angiography images of the chest with intravenous contrast using pulmonary embolism protocol. MIP reconstructed images were created and reviewed. COMPARISON: No relevant prior studies available. FINDINGS: Pulmonary arteries: No evidence of pulmonary embolism. Aorta: Ectatic ascending aorta. Atherosclerotic calcifications and plaques. No aortic dissection. Lungs: Left upper lobe/hilar peribronchial infiltrative soft tissue. Left prevascular/AP window and l eft paratracheal infiltrative soft tissue/adenopathy. Left upper lobe spiculated nodule adjacent to t he major fissure and pleura measuring up to 2.5 cm. Findings are likely related to malignant/metastatic disease. There are other bilateral pulmonary nodules such as seen at the right apex on image 24, right upper lobe on image 52 and left lower lobe superior segment on image 59 which could be metastat ic. Pleural space: No effusion. No pneumothorax. Heart: No cardiomegaly. No pericardial effusion. Coronary calcifications. Bones/joints: No acute fracture. No dislocation. Soft tissues: No acute findings. Lymph nodes: See above. There is also multiple left axillary and retropectoral adenopathy concerning for metastases. Adrenals: Left adrenal mass measuring 3.8 x 1.8 cm suspicious for metastasis. IMPRESSION: Findings likely related to malignant/metastatic disease as described above. THIS REPORT CONTAINS FINDINGS THAT MAY BE CRITICAL TO PATIENT CARE. The findings were verbally commun icated via telephone conference with Dr Cespedes at 2:17 AM CDT on 12/13/2017. The findings were acknowle dged and understood. Thank you for allowing us to participate in the care of your patient. Dictated and Authenticated by: Seferino Zavala MD 12/13/2017 2:30 AM Central Time ([place] & [place]) FINAL REPORT EMERGENT AFTER HOURS CT ANGIOGRAM OF THORAX WITH IV CONTRAST AND 3D RECONSTRUCTIONS: DATE: 12/03/17. HISTORY: Dyspnea, shortness of breath. IMPRESSION: 1. Left upper lobe mass adjacent to the superior aspect of the major fissure measuring 2.5 cm in max imal dimensions with irregular borders. There are also pulmonary nodules seen within the right upper lobe with the largest pulmonary nodule measuring approximately 8 mm. There is also a small left low er lobe pulmonary nodule measuring 7 mm. Lymphadenopathy in the prevascular space with large area of soft tissue density measuring 5.3 cm x 3.5 cm as well as soft tissue density in the left hilar regio n measuring approximately 2 cm also likely related to lymphadenopathy. Findings are likely related t o malignancy and metastatic disease. 2. No CT evidence of pulmonary embolus. 3. Vascular calcifications in the coronary arteries and thoracic aorta. The thoracic aorta is brandi l in caliber without evidence of an aortic dissection. 4. Left adrenal nodule/mass measuring 3.8 cm. This cannot be characterized as an adrenal adenoma on this post-enhanced CT scan exam. Given findings in the chest as well as left adrenal nodule, CT abd omen and pelvis may be helpful for further evaluation with pre- and postcontrast imaging recommended to evaluate the left adrenal nodule. 5. Pleural and parenchymal scarring, partially calcified at the right lung apex. 6. Findings are in agreement with the preliminary report by [facility]. POS: [facility]
== END 2017-12-13 03:09 | disposition home or self-care (01) ==
LOC: ERS 22:07
DX: R91.8 Other nonspecific abnormal finding of lung field (principal); I10 Essential (primary) hypertension; E03.9 Hypothyroidism, unspecified; Z79.899 Other long term (current) drug therapy; Z79.82 Long term (current) use of aspirin
CPT/HCPCS: 71046; 71275; 80053; 83605; 83880; 84484; 85025; 93005

== ENCOUNTER 2017-12-17 08:14 | Outpatient (CLI) | payer MEDICARE ==
--- NOTE | 2017-12-17 13:23 | PET ---
RADIONUCIDE PET SCAN WITH CT ATTENUATION CORRECTION: HISTORY: Lung mass. Presume lung cancer. Initial staging. COMPARISON: CTA chest from 12/13/2017. FINDINGS: Uptake associated with the heterogeneous mass at the posterior aspect of the left upper lobe shows a maximum SUV of 5. Uptake at the left adrenal gland mass shows a maximum SUV of 10.2. Focal areas of abnormal uptake in the bone show a maximum SUV of 5 at the left acetabulum and 4.8 at the posterior aspect of the L5 vertebral body. Many lymph nodes are enlarged and show increased radiotracer uptake. Maximum SUV and location are as follows: LOCATION MAXIMUM SUV Q.CLEAR Left supraclavicular: 4.9 Left prepectoral 9.5 Left axillary 13.1 Aorticopulmonary window: 15.6 Uptake is associated with the posterior pharynx, at the level of the epiglottis, with a maximum SUV o f 4.8. Diffuse uptake throughout the thyroid gland, including each lobe and the isthmus, shows a maximum SUV of 8.3. Nondiagnostic CT attenuation correction measures show emphysematous changes of the lungs. Prominent calcification throughout the arterial structures. IMPRESSION: 1. Widespread metastatic disease. Left upper lobe lung neoplasm is the favored primary, given the l eft upper lobe mass and the left adrenal lesion. 2. Diffuse involvement of the thyroid gland is less likely related to metastatic disease than to oth er thyroid abnormalities, such as acute or chronic thyroiditis. Please consider correlation with thy roid clinical evaluation and thyroid sonogram. 3. Chronic obstructive pulmonary disease. 4. Atherosclerosis. POS: [facility]
== END 2017-12-17 08:15 | disposition home or self-care (01) ==
LOC: PET 08:14
PROVIDERS: ATTEND Internal Medicine Pulmonary Disease
DX: C34.12 Malignant neoplasm of upper lobe, left bronchus or lung (principal); J44.9 Chronic obstructive pulmonary disease, unspecified; I70.8 Atherosclerosis of other arteries; E27.9 Disorder of adrenal gland, unspecified
CPT/HCPCS: 78815; A9552

== ENCOUNTER 2017-12-24 08:17 | Day surgery (SDC) | payer MEDICARE ==
[2017-12-24 09:02] LABS: INR-International Normal Ratio 0.9; PTT 26.3 SEC (22.9-36.1); Prothrombin Time 11.7 SEC (12.0-14.7)
[2017-12-24 09:28] VITALS: BP 149/89; TEMP 97.8
[2017-12-24 09:43] VITALS: BMI 21.8
--- NOTE | 2017-12-24 12:06 | ULT ---
ULTRASOUND GUIDED BIOPSY OF LEFT AXILLARY LYMPH NODE: HISTORY: Axillary adenopathy noted on recent CT. Biopsy was requested. TECHNIQUE: After informed consent was obtained, the patient was prepped and draped in the normal sterile fashion . A small skin incision was made with a #11 scalpel blade. The lymph node chosen for the biopsy was a 1.8 x 3.2 cm node. A total of 2 core biopsies were performed using an 18-gauge Biopince needle. After 2 core biopsies, pathology indicated adequacy of the specimen. The patient tolerated the proce dure well. There are no immediate complications. IMPRESSION: Successful left axillary lymph node biopsy. No immediate complications of the procedure. POS: [facility]
== END 2017-12-24 10:00 | disposition home or self-care (01) ==
LOC: CT 08:17
PROVIDERS: ATTEND Internal Medicine Pulmonary Disease
PROC: 07B63ZX Excision of Left Axillary Lymphatic, Percutaneous Approach, Diagnostic (ICD-10-PCS; principal; 2017-12-24)
DX: C7A.1 Malignant poorly differentiated neuroendocrine tumors (principal)
CPT/HCPCS: 36415; 38505; 85610; 85730; 88305; 88333; 88341; 88342; 88360

== ENCOUNTER 2018-01-09 11:19 | Inpatient (IN) | payer MEDICARE ==
[2018-01-09 12:22] LABS: Band 36 % (5-11); Hemoglobin 10.9 g/dL (14.0-18.0); Lymphocytes 28 % (21-51); MDiff Complete? YES; Mean Corpuscular HGB CONC 33.1 g/dL (32.0-36.0); Mean Corpuscular Volume 99.5 fL (78.0-98.0); Mean Platelet Volume 7.7 fL (7.4-10.4); Metamyelocyte 2 % (0-0); Monocytes 15 % (0-10); Myelocyte 1 % (0-0); Neutrophil 18 % (42-75); PLT Morphology Comment Appears Decreased; Platelet Count 60 thou/uL (130-400); RBC Distribution Width 11.6 % (11.5-14.5); White Blood Cell (WBC) Count 2.1 thou/uL (4.8-10.8)
[2018-01-09 12:25] LABS: ALT (SGPT) 31 U/L (8-55); AST (SGOT) 14 U/L (5-34); Albumin 2.9 g/dL (3.4-4.8); Alkaline Phosphatase 73 U/L (40-150); Anion Gap 12 mmol/L (10-20); BUN (Urea Nitrogen) 16 mg/dL (8.4-25.7); Calc. Creatinine Clearance 0 mL/min (70-130); Calcium 8.9 mg/dL (7.8-10.44); Carbon Dioxide 33 mmol/L (23-31); Chloride 81 mmol/L (98-107); Estimated GFR-MDRD Greater than 90; Globulin 2.5 g/dL (2.4-3.5); Glucose 95 mg/dL (83-110); Potassium 3.8 mmol/L (3.5-5.1); Protein, Total 5.4 g/dL (5.8-8.1); Sodium 122 mmol/L (136-145)
[2018-01-09 13:36] LABS: CKMB 0.7 ng/mL (0-6.6); Troponin I Less than 0.010 ng/mL (< 0.028)
--- NOTE | 2018-01-09 14:42 | RAD ---
CHEST 1 VIEW UPRIGHT PORTABLE: Date: 01/09/18 HISTORY: 72-year-old male with history of chest pain, fall earlier this morning. Patient with lung cancer, on chemotherapy. FINDINGS: Left subclavian catheter and injection port. Biapical pleural thickening. Developing parenchymal mcdermott ges in both lung bases since 01/01/18. Evidence for bibasilar pneumonia or pneumonitis and/or subsegm ental atelectasis. No significant confluent process in the mid or upper lung zones. IMPRESSION: Minimal bibasilar parenchymal changes developing since the prior study, evidence for minimal lower lo be pneumonia or pneumonitis and/or subsegmental atelectasis. No pneumothorax. Stable biapical pleural thickening. Left subclavian catheter and injection port. POS: [facility]
--- NOTE | 2018-01-09 15:03 | CT ---
CTA CHEST WITH 3D VOLUME RENDERING WITH CONTRAST: Date: 01/09/18 Reference made to 12/27/17. INDICATIN: Dyspnea. FINDINGS: There is redemonstration of multifocal pulmonary parenchymal nodularity, as was depicted on recent, 1 , exam. There remains bibasilar, posteriorly located consolidation, which again may relate to aspiration pneumonia. There is no evidence of interval development of a significant pulmonary embolus . Thoracic aorta is stable. There is no pneumothorax or significant effusion. The previously describe d soft tissue density of the left suprahilar region is redemonstrated at approximately 4.5 cm. IMPRESSION: 1. Grossly stable CTA chest without interval development of acute pulmonary embolus. 2. Redemonstration of multifocal pulmonary parenchymal nodularity bilaterally, as well as areas that indicate sequelae from aspiration pneumonia. Follow-up to resolution is recommended. POS: [facility]
[2018-01-09] MEDS ORDERED: ISOVUE-370 76%-LOCM 1 ML ONE (15:16)
[2018-01-09 16:47] LABS: Troponin I 0.013 ng/mL (< 0.028)
[2018-01-09] MEDS ORDERED: Acetaminophen 325 MG TAB PO PRN ×2 (18:23→18:34)
[2018-01-09] MEDS ORDERED: Sodium Chloride 0.9% 1,000 ML IV SCH (18:23)
[2018-01-09] MEDS ORDERED: Ondansetron HCl/PF 4 MG/2 ML Vial IVP PRN ×2 (18:23→18:34)
[2018-01-09] MEDS ORDERED: Ondansetron ODT 4 MG TAB SL PRN (18:23)
[2018-01-09] MEDS ORDERED: Prevnar 13-Val Conj/PF 0.5 ML SYRINGE IM ONE (18:30)
[2018-01-09] MEDS ORDERED: Senokot S 8.6-50 MG TAB PO PRN (18:34)
[2018-01-09] MEDS ORDERED: Ondansetron ODT 4 MG TAB PO PRN (18:34)
[2018-01-09] MEDS ORDERED: Melatonin 3 MG TAB PO PRN (18:40)
[2018-01-09] MEDS ORDERED: Prochlorperazine Maleate 5 MG TAB PER TUBE PRN (18:41)
[2018-01-09] MEDS ORDERED: Ondansetron ODT 8 MG TAB PO PRN (18:41)
--- NOTE | 2018-01-09 18:43 | PDOC.FPRHP ---
- History of Present Illness Chief Complaint: Weakness History of Present Illness: Patient presents with LE weakness that began last night. Today patient fell while trying to sit on toilet. No LOC, did not hit head. Denies fever, chills, dizziness. Has been tolerating 4-5.5 containers of supplement via PEG tube. Reportedly been gaining weight with goal of 7 containers per day. Reports constipation. - Allergies/Adverse Reactions Allergies Allergy/AdvReac Type Severity Reaction Status Date / Time No Known Allergies Allergy Verified 01/05/18 15:25 - Home Medications Medication Instructions Recorded Confirmed Type Levothyroxine Sodium 137 mcg PER TUBE DAILY 09/08/17 01/09/18 History Acetaminophen [Tylenol Elixir] 650 mg PER TUBE Q4H PRN udcup 01/01/18 01/09/18 Rx Ipratropium/Albuterol Sulfate 3 ml NEB Q4HR 01/09/18 01/09/18 History [Duoneb] Melatonin 3 mg PER TUBE HS PRN 01/09/18 01/09/18 History Ondansetron [Zofran ODT] 8 mg PO Q6HR PRN 01/09/18 01/09/18 History Prochlorperazine Maleate 10 mg PER TUBE Q6HR PRN 01/09/18 01/09/18 History Sertraline HCl [Zoloft] 50 mg PER TUBE DAILY 01/09/18 01/09/18 History - History PMHx: Hypothyroid, HLD, metastatic lung cancer, tongue cancer in remission 2002 , previous HTN PSHx: tongue cancer resection FHx: none Social: 40 pack year history, quit 2002. Denies alcohol, drugs. - Review of Systems General: denies: fever/chills, weight/appetite/sleep changes Eyes: denies: eye pain, vision changes ENT: denies: nasal congestion, rhinorrhea Respiratory: denies: cough, shortness of breath Cardiovascular: denies: chest pain, palpitation, edema Gastrointestinal: reports: constipation. denies: nausea, vomiting, diarrhea, abdominal pain Genitourinary: denies: incontinence, dysuria Skin: denies: rashes, lesions Musculoskeletal: denies: pain, swelling Neurological: reports: weakness. denies: numbness, syncope Psychological: reports: anxiety, depression - Vital signs BP: 156/108 HR: 112 RR: 17 Pox: 100 % on 2L Wt: 74 - Physical Exam Constitutional: NAD, awake, alert and oriented HEENT: normocephalic and atraumatic, PERRLA, EOMI, grossly normal vision, grossly normal hearing, normal nasal mucosa -HEENT: mucus membranes dry, s/p tongue resection Neck: trachea midline, no JVD Heart: RRR, normal S1/S2, no murmurs/rubs/gallops, pulses present, no edema -Lungs: Diffuse course breath sounds, rhonchi Abdomen: soft, non-tender, bowel sounds present, other (PEG tube in place) Musculoskeletal: normal structure, normal tone -Musculoskeletal: b/l LE 4/5 strength Neurological: no focal deficit, CN II-XII intact Skin: capillary refill <2 seconds Heme/Lymphatic: no unusual bruising or bleeding FMR H&P: Results - Labs Result Diagrams: 01/09/18 11:44 01/09/18 19:21 Lab results: WBC 2.1 thou/uL (4.8-10.8) L 01/09/18 11:44 Hgb 10.9 g/dL (14.0-18.0) L 01/09/18 11:44 Hct 32.8 % (42.0-52.0) L 01/09/18 11:44 MCV 99.5 fL (78.0-98.0) H 01/09/18 11:44 Plt Count 60 thou/uL (130-400) L 01/09/18 11:44 Band Neuts % (Manual) 36 % (5-11) H 01/09/18 11:44 Sodium 122 mmol/L (136-145) L 01/09/18 11:44 Potassium 3.8 mmol/L (3.5-5.1) 01/09/18 11:44 Chloride 81 mmol/L (98-107) L 01/09/18 11:44 Carbon Dioxide 33 mmol/L (23-31) H 01/09/18 11:44 BUN 16 mg/dL (8.4-25.7) 01/09/18 11:44 Creatinine 0.77 mg/dL (0.6-1.3) 01/09/18 11:44 Glucose 95 mg/dL (83-110) 01/09/18 11:44 Calcium 8.9 mg/dL (7.8-10.44) 01/09/18 11:44 Total Bilirubin 1.0 mg/dL (0.2-1.2) 01/09/18 11:44 AST 14 U/L (5-34) 01/09/18 11:44 ALT 31 U/L (8-55) 01/09/18 11:44 Alkaline Phosphatase 73 U/L (40-150) 01/09/18 11:44 Creatine Kinase 31 U/L (30-200) 01/09/18 13:08 CK-MB (CK-2) 0.7 ng/mL (0-6.6) 01/09/18 13:08 Serum Total Protein 5.4 g/dL (5.8-8.1) L 01/09/18 11:44 Albumin 2.9 g/dL (3.4-4.8) L 01/09/18 11:44 FMR H&P: A/P - Problem List (1) Hyponatremia Current Visit: Yes Status: Acute Code(s): E87.1 - HYPO-OSMOLALITY AND HYPONATREMIA (2) Weakness Current Visit: Yes Status: Acute Code(s): R53.1 - WEAKNESS (3) D-dimer, elevated Current Visit: Yes Status: Acute Code(s): R79.89 - OTHER SPECIFIED ABNORMAL FINDINGS OF BLOOD CHEMISTRY (4) Constipation Current Visit: Yes Status: Acute Code(s): K59.00 - CONSTIPATION, UNSPECIFIED (5) Depression Current Visit: Yes Status: Acute Code(s): F32.9 - MAJOR DEPRESSIVE DISORDER , SINGLE EPISODE, UNSPECIFIED (6) Macrocytic anemia Current Visit: Yes Status: Acute Code(s): D53.9 - NUTRITIONAL ANEMIA, UNSPECIFIED (7) H/O oral cancer Current Visit: No Status: Acute Code(s): Z85.819 - PRSNL HX OF MALIG NEOPLM OF UNSP SITE LIP,ORAL CAV,& PHARYNX (8) HTN (hypertension) Current Visit: No Status: Acute Code(s): I10 - ESSENTIAL (PRIMARY) HYPERTENSION (9) History of tobacco abuse Current Visit: No Status: Acute Code(s): Z87.891 - PERSONAL HISTORY OF NICOTINE DEPENDENCE (10) Hypothyroid Current Visit: No Status: Acute Code(s): E03.9 - HYPOTHYROIDISM, UNSPECIFIED (11) Lung cancer Current Visit: No Status: Acute Code(s): C34.90 - MALIGNANT NEOPLASM OF UNSP PART OF UNSP BRONCHUS OR LUNG - Plan 72 yo M with PMH hypothyroidism 2/2 radiation of tongue cancer 2002, HLD, recent lung cancer diagnosis that presented with weakness and falls. Symptomatic hyponatremia - weakness and falls - Na 122 on admission - possibly 2/2 SIADH - trop neg x2 - repeat BMP @ 20:00 tonight - urine sodium and osmolality pending - has been on NS @ 120 in ED. Will consider fluid restriction Falls - physical deconditioning - PT/OT consulted - will likely need wheelchair in outpatient setting - fall precautions Lung cancer - Dr. Mckeon is waste hand. Dr. Quintana is oncologist. - diagnosed with PET in 11/2017, lymph node biopsy 12/24 - breath sounds and speech course, notes pt is at baseline - port in place, finished 1st round of chemo 01/01 - discuss with oncology in am Hypothyroidism - 2/2 radiation - continue home synthroid Elevated D-dimer - CTA negative for PE - denies SOB, difficulty breathing Constipation - last BM wednesday - bowel regimen Depression - continue home sertraline and prochlorperazine - may consider d/c these meds if thought they contribute to hyponatremia Macrocytic anemia - Hgb 10.9 - continue to monitor Hx of HTN - patient no longer taking BP meds at home - will monitor Hx tongue cancer - has been on pureed diet since sx in 2002. Now has PEG placed. Hx of tobacco abuse - 40 pack years, quit in 2002 Code: FULL Ppx: SCDs Dispo: admit to tele inpatient with expected stay >2 midnights FMR H&P: Upper Level - Pertinent history 72 yo male here for weakness. Patient has history significant for tongue and lung cancer, the latter of which he started chemo for this past week. He has been having SOB, labored breathing which is baseline but worse than normal. Last night he fell twice. No head trauma or LOC. - Pertinent findings 120/81 HR: 108 Temp: 98.7 SO2: 100% on 2L RR: 22 GEN: mildly ill appearing, breath sounds audible with mild work with breathing PULM: coarse breath sounds throughout likely 2/2 to therapy CARD: tachycardia GI: peg tube in abdomen Left subclavian port Labs reviewed, imaging reviewed - Plan Date/Time: 01/09/181842 Symptomatic hyponatremia Suspect this could be due to lung cancer, SIADH. Will check urine osm and Na , serum osm. Likely will need to fluid restrict; recheck Na at 20:00 tonight and in AM. Metastatic lung cancer Will consult oncologist in the AM Head/mouth cancer Feeds with PEG tube Deconditioning PT/OT, CM for placement Hypothyroid Continue home meds I, Surendra Alberto DO, have evaluated this patient and agree with findings/plan as outlined by actuarial intern resident. Pertinent changes/additions are listed here. Attending Addendum - Attending Addendum Date/Time: 01/09/181954 I personally evaluated the patient and discussed the management with Dr. Lucas and Dr. Alberto I agree with the History, Examination, Assessment and Plan documented above with any addition or exceptions noted below. 72 yo male with recently dx lung cancer presents for evaluation of weakness and falls x 1 day Patient reports progressive weakness over the last week. Fall x 2 today. Started Chemo on 12/29, ,5. VS reviewed. Labs reviewed. Patient appears weak/low energy on exam. AAOxPPTE. RRR. Mild BLE weakness against resistance 07/01. Euvolemic Hyponatriemia: Patient has received 1 L NS in ER. Repeat labs pending. Trend in AM. Likely SIADH due to risk factors such as chemo, lung cancer and SSRI use. Will start with fluid restriction. Ruling out worsening of thyroid disease and adrenal disease. If fluid restriction not improving as expected will consider Hypertonic saline vs medication. However no significant symptoms at present. Monitor rate of change with repeat BMPs. Hypothyroidism: TSH pending. Continue home meds and adjust at needed. Metastatic Small cell lung carcinoma: Heme/onc and pulm Monitor other co-morbid conditions. Adjust medications as needed. Sharon
[2018-01-09] MEDS ORDERED: Melatonin 3 MG TAB PER TUBE PRN (19:24)
[2018-01-09 19:44] LABS: Osmolality, Urine 517 mOsm/kg (300-900)
[2018-01-09 19:55] LABS: Troponin I Less than 0.010 ng/mL (< 0.028)
[2018-01-09 20:11] LABS: Sodium, Urine Less than 20 mmol/L (Not Available)
[2018-01-09 20:16] LABS: Anion Gap 15 mmol/L (10-20); BUN (Urea Nitrogen) 15 mg/dL (8.4-25.7); Calc. Creatinine Clearance 96 mL/min (70-130); Calcium 8.7 mg/dL (7.8-10.44); Carbon Dioxide 28 mmol/L (23-31); Chloride 86 mmol/L (98-107); Estimated GFR-MDRD Greater than 90; Glucose 132 mg/dL (83-110); Potassium 3.7 mmol/L (3.5-5.1); Sodium 125 mmol/L (136-145)
[2018-01-09] MEDS: Acetaminophen 650 MG/20.3 ML UDCUP PER TUBE PRN (20:48)
[2018-01-09] MEDS: Senokot S 8.6-50 MG TAB PO SCH (21:42)
[2018-01-10] MEDS: Sodium Chloride 0.9% 1,000 ML IV SCH ×3 (02:58→13:11)
[2018-01-10] MEDS: Acetaminophen 650 MG/20.3 ML UDCUP PER TUBE PRN ×4 (02:59→19:55)
[2018-01-10 04:49] LABS: Anion Gap 11 mmol/L (10-20); BUN (Urea Nitrogen) 15 mg/dL (8.4-25.7); Calc. Creatinine Clearance 108 mL/min (70-130); Calcium 8.1 mg/dL (7.8-10.44); Carbon Dioxide 32 mmol/L (23-31); Chloride 88 mmol/L (98-107); Estimated GFR-MDRD Greater than 90; Glucose 169 mg/dL (83-110); Potassium 3.3 mmol/L (3.5-5.1); Sodium 128 mmol/L (136-145)
[2018-01-10 05:04] LABS: Band 50 % (5-11); Dohle Bodies SLIGHT; Hemoglobin 9.7 g/dL (14.0-18.0); Lymphocytes 10 % (21-51); MDiff Complete? YES; Mean Corpuscular HGB CONC 33.1 g/dL (32.0-36.0); Mean Corpuscular Hemoglobin 32.9 pg (27.0-31.0); Mean Corpuscular Volume 99.5 fL (78.0-98.0); Mean Platelet Volume 7.8 fL (7.4-10.4); Metamyelocyte 2 % (0-0); Monocytes 6 % (0-10); Neutrophil 30 % (42-75); PLT Morphology Comment Appears Decreased; Platelet Count 59 thou/uL (130-400); RBC Distribution Width 11.6 % (11.5-14.5); Reactive Lymphocytes 2 % (0-10); Red Blood Cell (RBC) Count 2.96 mill/uL (4.70-6.10); White Blood Cell (WBC) Count 3.4 thou/uL (4.8-10.8)
[2018-01-10] MEDS: Levothyroxine Sodium 25 MCG TAB PER TUBE SCH (05:39)
[2018-01-10] MEDS: Levothyroxine Sodium 112 MCG TAB PER TUBE SCH (05:39)
[2018-01-10] MEDS: Senokot S 8.6-50 MG TAB PO SCH ×2 (08:47→19:56)
[2018-01-10] MEDS: Pantoprazole 40 MG GRANULES PACKET PER TUBE SCH (08:47)
--- NOTE | 2018-01-10 09:03 | PDOC.FM ---
- Subjective Subjective: This morning patient states he is feeling well. Serenity AVILES, sob, cp, or abd pain. States he slept better last night than he had in weeks. Has not been walking as of yet, recent falls, looks forward to PT today. - Objective Vital Signs & Weight: Vital Signs (12 hours) Temp Pulse Resp BP Pulse Ox 01/10/18 07:50 98.3 F 115 H 28 H 150/88 H 92 L 01/10/18 07:08 115 H 20 90 L 01/10/18 04:02 97.9 F 115 H 18 129/71 94 L 01/10/18 02:49 119 H 18 92 L 01/10/18 00:30 98.5 F 109 H 20 139/91 H 92 L Weight Weight 73.028 kg I&O: 01/09/18 01/10/18 01/11/18 06:59 06:59 06:59 Intake Total 237 Balance 237 Result Diagrams: 01/10/18 03:45 01/10/18 03:45 <Surendra Martinez - Last Filed: 01/10/18 09:01> - Objective Vital Signs & Weight: Vital Signs (12 hours) Temp Pulse Pulse Pulse Resp BP BP 01/10/18 12:11 98.2 F 115 H 28 H 01/10/18 10:28 111 H 20 01/10/18 10:11 120 H 117 H 111/62 143/78 H 01/10/18 07:50 98.3 F 115 H 28 H 01/10/18 07:08 115 H 20 01/10/18 04:02 97.9 F 115 H 18 01/10/18 02:49 119 H 18 BP Pulse Ox 01/10/18 12:11 108/64 98 01/10/18 10:28 93 L 01/10/18 10:11 01/10/18 07:50 150/88 H 92 L 01/10/18 07:08 90 L 01/10/18 04:02 129/71 94 L 01/10/18 02:49 92 L Weight Weight 73.028 kg I&O: 01/09/18 01/10/18 01/11/18 06:59 06:59 06:59 Intake Total 237 267 Balance 237 267 Result Diagrams: 01/10/18 03:45 01/10/18 08:37 <Palomo Nj - Last Filed: 01/10/18 12:44> Phys Exam - Physical Examination Constitutional: NAD HEENT: PERRLA s/p tongue resection stridorous breath sounds, no rales/crackles Cardiovascular: RRR, no significant murmur Gastrointestinal: soft, non-tender, no distention Musculoskeletal: no edema, pulses present Neurological: non-focal, moves all 4 limbs Psychiatric: A&O x 3 Skin: no rash, cap refill <2 seconds <Surendra Martinez - Last Filed: 01/10/18 09:01> Dx/Plan (1) D-dimer, elevated Code(s): R79.89 - OTHER SPECIFIED ABNORMAL FINDINGS OF BLOOD CHEMISTRY Status : Acute (2) Hyponatremia Code(s): E87.1 - HYPO-OSMOLALITY AND HYPONATREMIA Status: Acute (3) Macrocytic anemia Code(s): D53.9 - NUTRITIONAL ANEMIA, UNSPECIFIED Status: Acute (4) Weakness Code(s): R53.1 - WEAKNESS Status: Acute (5) Dyspnea Code(s): R06.00 - DYSPNEA, UNSPECIFIED Status: Acute (6) H/O oral cancer Code(s): Z85.819 - PRSNL HX OF MALIG NEOPLM OF UNSP SITE LIP,ORAL CAV,& PHARYNX Status: Acute (7) HTN (hypertension) Code(s): I10 - ESSENTIAL (PRIMARY) HYPERTENSION Status: Acute (8) History of throat cancer Code(s): Z85.819 - PRSNL HX OF MALIG NEOPLM OF UNSP SITE LIP,ORAL CAV,& PHARYNX Status: Acute (9) History of tobacco abuse Code(s): Z87.891 - PERSONAL HISTORY OF NICOTINE DEPENDENCE Status: Acute (10) Hypothyroid Code(s): E03.9 - HYPOTHYROIDISM, UNSPECIFIED Status: Acute - Plan Plan: 72 yo M with PMH hypothyroidism 2/2 radiation of tongue cancer 2002, SCC lung presents for eval of falls, hyponatremia Symptomatic hyponatremia - weakness and falls - Na 122-> 128 - AM cortisol 23, serum osm low, urine sodium low x2 - unlikely SIADH suspect dietary source, assembly instructions writer consulted - continue gentle fluids Falls - physical deconditioning - PT/OT consulted - fall precautions Lung cancer - Dr. Mckeon is high pressure operator. Dr. Quintana is oncologist. - diagnosed with PET in 11/2017, lymph node biopsy 12/24 - breath sounds and speech course, notes pt is at baseline - port in place, finished 1st round of chemo 01/01 - Oncology consulted Hypothyroidism - 2/ radiation - continue home synthroid, TSH 5.7, T4 pending Elevated D-dimer - CTA negative for PE - denies SOB, difficulty breathing Constipation - last BM wednesday - bowel regimen Depression - continue home sertraline and prochlorperazine Macrocytic anemia - Hgb 10.9 -> 9.7 - continue to monitor Hx tongue cancer - has been on pureed diet since sx in 2002. Now has PEG placed. Hx of tobacco abuse - 40 pack years, quit in 2002 Code: FULL Ppx: SCDs Dispo: 2 days <Surnedra Martinez - Last Filed: 01/10/18 09:01> Attending Addendum - Attending Addendum Date/Time: 01/10/18 123 I personally evaluated the patient and discussed the management with Dr. Devyn Martinez I agree with the History, Examination, Assessment and Plan documented above with any addition or exceptions noted below. Sodium responding to IV fluid challenge. Patient and aware of care plans. Patient declines trial of po feeding swallow study s/p partial tongue resection or CA , XRT and reconstructive surgery floor of his mouth. Patient with history of Small Cell Lung CA as well. <Palomo Nj - Last Filed: 01/10/18 12:44>
[2018-01-10 09:22] LABS: Anion Gap 12 mmol/L (10-20); BUN (Urea Nitrogen) 12 mg/dL (8.4-25.7); Calc. Creatinine Clearance 108 mL/min (70-130); Calcium 8.7 mg/dL (7.8-10.44); Carbon Dioxide 33 mmol/L (23-31); Chloride 89 mmol/L (98-107); Estimated GFR-MDRD Greater than 90; Glucose 114 mg/dL (83-110); Potassium 3.6 mmol/L (3.5-5.1); Sodium 130 mmol/L (136-145)
--- NOTE | 2018-01-10 12:38 | PRG ---
DATE OF SERVICE: 01/10/2018 The patient was admitted to the hospital after he sustained a fall at home. He was found to have a s odium of 125. This morning it is 130. The patient is well known to me. This morning he said he is feeling better except his nose is still stuffy. PHYSICAL EXAMINATION: VITAL SIGNS: Sats are 93 on 2 liters, pulse 111, temperature 98, blood pressure 140/78. CHEST: Chest still reveals impressive bilateral rhonchi, without any crackles. CARDIAC: Normal S1, S2. ABDOMEN: Soft, no masses. LABORATORY DATA: White count 3000. H&H 9 and 29, platelet count 59. IMPRESSION: 1. Small cell carcinoma, status post chemotherapy. 2. Hyponatremia, multifactorial, could very well be accounting for his hypothyroidism. PLAN: I added Flonase to present regime. Otherwise, continue nutrition, PT. Disposition home, hopefully soon.
[2018-01-10] MEDS ORDERED: Prevnar 13-Val Conj/PF 0.5 ML SYRINGE IM ONE (15:00)
[2018-01-10 15:34] VITALS: BMI 20.7
[2018-01-10] MEDS: Metoprolol Tartrate 25 MG TAB PO SCH (22:37)
--- NOTE | 2018-01-10 22:50 | CON ---
DATE OF CONSULTATION: 01/10/2018 REASON FOR CONSULTATION: Large cell neuroendocrine carcinoma, lung. 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 The patient's states that the patient yesterday morning went to sit on the toilet and fell down and could not get up. He did n ot hit his head. She was unable to lift him and so called EMS who stated that on arrival, patient's oxygen saturation was 86% and they recommended to go to the ER. On presentation to the ER, patient's sodium was 122, it is currently, 130. Most of the history is gathered from the . The patient's states that he did well after discharge home other than nausea and vomiting which was controlle d with alternating doses of Zofran and Compazine. The day prior to admission to the hospital, taras kaiser had no problems walking from their barn to her house 300 feet round trip. She has been giving him 5-1/2 Ensure per day through the PEG tube and vitamin water. Patient does feel slightly improved sin ce admission to the hospital. The patient has been constipated and had been giving him p.r.n. S enokot, but only every few days. She also states that the patient is depressed and anxious and has r ecently started Zoloft 8-9 days ago. REVIEW OF SYSTEMS: Ten point review of systems negative except as per HPI. PAST MEDICAL HISTORY: Large cell neuroendocrine tumor of lung, tongue cancer, hypothyroidism, hyperl ipidemia, hypertension. PAST SURGICAL HISTORY: Tongue cancer resection. FAMILY HISTORY: No family history of cancer. SOCIAL HISTORY: A 97-[id number]-yjlc smoking history, quit in 2002. No alcohol or drugs. PHYSICAL EXAMINATION: VITAL SIGNS: Temperature 98.2, pulse 117, respirations 18, satting 95% on 2 liters by nasal cannula, blood pressure 108/64. GENERAL: The patient in no acute distress, lying in bed, appears comfortable. LUNGS: Coarse breath sounds and rhonchi. CARDIOVASCULAR: Tachycardia, normal S1, S2. ABDOMEN: Soft, nondistended, nontender with PEG tube in place. EXTREMITIES: No edema. NEUROLOGIC: Cranial nerves II-XII grossly intact. PSYCHIATRIC: Noticeable anxiety; however, patient is calm, alert and oriented x3. LABORATORY DATA AND IMAGING DATA: Sodium 122 on presentation, currently 130, potassium 3.6, chloride 81 on admission, currently 89, BUN 12, creatinine 0.63, TSH 5.7. Free T4 0.53, white blood cells 3. 4, hemoglobin 9.7, hematocrit 29.4, platelets 59. Urine osmolality 517, urine sodium less than 20. CT angio of the chest and thorax dated 01/09/2018, shows grossly stable chest disease without interva l development of acute PE. Redemonstration of multifocal pulmonary parenchymal nodularity bilaterall y as well as areas indicate sequelae from aspiration pneumonia. ASSESSMENT AND PLAN: A 72-year-old male with large cell neuroendocrine tumor of the lung o n carboplatin and etoposide admitted with symptomatic hyponatremia after a fall at home. SIADH was i n consideration as a cause of his hyponatremia. However, with normal urine osmolality and low sodium , this is unlikely and most likely cause is decreased intake through the PEG tube. The patient's sod ium has responded to IV sodium chloride, also suggesting this is not due to syndrome of inappropriate antidiuretic hormone secretion. I have advised patient's to make sure he receives proper nutri tion through his PEG tube without free water. The patient received his first cycle of chemotherapy a nd imaging on admission to the hospital did not show any changes. However, it is too soon to assess for improvement in this cancer after only one cycle. The patient is due for second cycle on next Wed01/19/2018. The patient has depression and anxiety and was started on Zoloft a week ago and h as yet to notice improvement; however, this can take a couple of weeks to reach steady state and so I suggest continuing Xeloda for now with possibility to change in the future. This patient is also wi th constipation that has not been responding to p.r.n. at home. I advised the to give him Senok ot 1-2 tablets every nightly and we can add stool softeners to this if needed. I also advised patien t and to take Zofran 8 mg q.8 hours standing for the first few days after chemotherapy and add C ompazine for breakthrough nausea. I will see the patient in the clinic prior to his next cycle of ch emotherapy next week. The patient and are in agreement with the plan. I would also recommend P T evaluation and the patient may require a walker upon discharge.
[2018-01-11] MEDS: Acetaminophen 650 MG/20.3 ML UDCUP PER TUBE PRN ×2 (00:21→04:58)
[2018-01-11] MEDS: Sodium Chloride 0.9% 1,000 ML IV SCH ×2 (00:22→12:36)
[2018-01-11 04:16] LABS: Anion Gap 12 mmol/L (10-20); BUN (Urea Nitrogen) 13 mg/dL (8.4-25.7); Calc. Creatinine Clearance 115 mL/min (70-130); Calcium 7.9 mg/dL (7.8-10.44); Carbon Dioxide 29 mmol/L (23-31); Chloride 97 mmol/L (98-107); Estimated GFR-MDRD Greater than 90; Glucose 129 mg/dL (83-110); Potassium 3.6 mmol/L (3.5-5.1); Sodium 134 mmol/L (136-145)
[2018-01-11 05:05] LABS: Band 29 % (5-11); Hemoglobin 9.4 g/dL (14.0-18.0); Lymphocytes 10 % (21-51); MDiff Complete? YES; Macrocytosis SLIGHT = 6-15 cells (100X) (0-5/hpf); Mean Corpuscular HGB CONC 32.1 g/dL (32.0-36.0); Mean Corpuscular Hemoglobin 32.7 pg (27.0-31.0); Mean Platelet Volume 7.9 fL (7.4-10.4); Metamyelocyte 2 % (0-0); Monocytes 8 % (0-10); Myelocyte 2 % (0-0); Neutrophil 49 % (42-75); PLT Morphology Comment Appears Decreased; Platelet Count 50 thou/uL (130-400); RBC Distribution Width 11.8 % (11.5-14.5); Red Blood Cell (RBC) Count 2.88 mill/uL (4.70-6.10); Toxic Granulation SLIGHT; White Blood Cell (WBC) Count 7.7 thou/uL (4.8-10.8)
[2018-01-11] MEDS: Levothyroxine Sodium 25 MCG TAB PER TUBE SCH (06:00)
[2018-01-11] MEDS: Levothyroxine Sodium 112 MCG TAB PER TUBE SCH (06:01)
[2018-01-11] MEDS: Metoprolol Tartrate 25 MG TAB PO SCH (08:38)
[2018-01-11] MEDS: Senokot S 8.6-50 MG TAB PO SCH (08:38)
[2018-01-11] MEDS: Pantoprazole 40 MG GRANULES PACKET PER TUBE SCH (08:39)
[2018-01-11] MEDS ORDERED: Fluticasone Propionate Nasal Spray 16 gm Bottle NASAL SCH (09:00)
--- NOTE | 2018-01-11 09:22 | PDOC.FM ---
- Subjective Subjective: This morning the patient states he has some soreness in the L shoulder from the tele monitor. He denies dyspnea or SOB. No CP. He states he feels somewhat stronger but still not strong enough to ambulate to the restroom. - Objective Vital Signs & Weight: Vital Signs (12 hours) Temp Pulse Resp BP Pulse Ox 01/11/18 07:46 99 01/11/18 07:40 97.6 F 111 H 24 H 138/77 97 01/11/18 06:46 111 H 20 93 L 01/11/18 04:25 98.1 F 103 H 21 H 153/82 H 99 01/11/18 01:36 101 H 18 100 01/10/18 23:00 98.6 F 108 H 24 H 128/75 95 01/10/18 22:45 110 H 18 95 Weight Admit Weight 74.298 kg Weight 74.797 kg I&O: 01/10/18 01/11/18 01/12/18 06:59 06:59 06:59 Intake Total 237 3169 240 Output Total 625 Balance 237 2544 240 Result Diagrams: 01/11/18 03:32 01/11/18 03:32 <Surendra Martinez - Last Filed: 01/11/18 09:23> - Objective Vital Signs & Weight: Vital Signs (12 hours) Temp Pulse Resp BP Pulse Ox 01/11/18 07:46 99 01/11/18 07:40 97.6 F 111 H 24 H 138/77 97 01/11/18 06:46 111 H 20 93 L 01/11/18 04:25 98.1 F 103 H 21 H 153/82 H 99 01/11/18 01:36 101 H 18 100 Weight Admit Weight 74.298 kg Weight 74.797 kg I&O: 01/10/18 01/11/18 01/12/18 06:59 06:59 06:59 Intake Total 237 3169 240 Output Total 625 Balance 237 2544 240 Result Diagrams: 01/11/18 03:32 01/11/18 03:32 <Palomo Nj - Last Filed: 01/11/18 11:18> Phys Exam - Physical Examination Constitutional: NAD HEENT: PERRLA, moist MMs Neck: no nodes Respiratory: no wheezing, no rales upper airway stridor Cardiovascular: RRR, no significant murmur Gastrointestinal: soft, non-tender, no distention, positive bowel sounds Musculoskeletal: no edema, pulses present Neurological: non-focal, moves all 4 limbs Psychiatric: normal affect, A&O x 3 Skin: no rash, cap refill <2 seconds <Surendra Martinez - Last Filed: 01/11/18 09:23> Dx/Plan (1) D-dimer, elevated Code(s): R79.89 - OTHER SPECIFIED ABNORMAL FINDINGS OF BLOOD CHEMISTRY Status : Acute (2) Hyponatremia Code(s): E87.1 - HYPO-OSMOLALITY AND HYPONATREMIA Status: Acute (3) Macrocytic anemia Code(s): D53.9 - NUTRITIONAL ANEMIA, UNSPECIFIED Status: Acute (4) Weakness Code(s): R53.1 - WEAKNESS Status: Acute (5) Dyspnea Code(s): R06.00 - DYSPNEA, UNSPECIFIED Status: Acute (6) H/O oral cancer Code(s): Z85.819 - PRSNL HX OF MALIG NEOPLM OF UNSP SITE LIP,ORAL CAV,& PHARYNX Status: Acute (7) HTN (hypertension) Code(s): I10 - ESSENTIAL (PRIMARY) HYPERTENSION Status: Acute (8) History of throat cancer Code(s): Z85.819 - PRSNL HX OF MALIG NEOPLM OF UNSP SITE LIP,ORAL CAV,& PHARYNX Status: Acute (9) History of tobacco abuse Code(s): Z87.891 - PERSONAL HISTORY OF NICOTINE DEPENDENCE Status: Acute (10) Hypothyroid Code(s): E03.9 - HYPOTHYROIDISM, UNSPECIFIED Status: Acute - Plan Plan: 72 yo M with PMH hypothyroidism 2/2 radiation of tongue cancer 2002, large cell neuroendocrine tumor of lung presents for eval of falls, hyponatremia Symptomatic hyponatremia - weakness and falls - Na 122-> 128-> 134 - AM cortisol 23, serum osm low, urine sodium low x2 - unlikely SIADH suspect dietary source, whiskey regauger consulted - Onc has discussed diet recs with Falls - physical deconditioning - PT/OT consulted - fall precautions - may benefit from rehab placement, rehab screen placed Lung cancer - Dr. Mckeon is technology lead. Dr. Quintana is oncologist. - diagnosed with PET in 11/2017, lymph node biopsy 12/24 - breath sounds and speech course, notes pt is at baseline - port in place, finished 1st round of chemo 01/01 - Oncology consulted, appreciate recs Hypothyroidism - 2/2 radiation - continue home synthroid, TSH 5.7, T4 low - titrate up levothyroxine Elevated D-dimer - CTA negative for PE - denies SOB, difficulty breathing Constipation - last BM wednesday - bowel regimen Depression - continue home sertraline and prochlorperazine Macrocytic anemia - Hgb 10.9 -> 9.7 - B12 WNL - continue to monitor Hx tongue cancer - has been on pureed diet since sx in 2002. Now has PEG placed. Hx of tobacco abuse - 40 pack years, quit in 2002 Code: FULL Ppx: SCDs Dispo: not quite ready for home, still weak, rehab screen placed <Surendra Martinez - Last Filed: 01/11/18 09:23> Attending Addendum - Attending Addendum Date/Time: 01/11/18 1111 I personally evaluated the patient and discussed the management with Dr. Devyn Martinez I agree with the History, Examination, Assessment and Plan documented above with any addition or exceptions noted below. Note Baseline tachycardia patient with strong desire for dismissal to home. Candid discussion with patient not candidate for formal rehab with ongoing chemotherapy will assess stability for d /c today after trial shower and independent ambulation. RX for walker ordered per Dr Martinez. He will return for chemotherapy on the . <Palomo Nj - Last Filed: 01/11/18 11:18>
--- NOTE | 2018-01-11 10:48 | PRG ---
DATE OF SERVICE: 01/11/2018 This morning he is awake, alert, responsive. He is doing better. PHYSICAL EXAMINATION: VITAL SIGNS: Sats 99 on 2 liters, respiration 22, pulse 111, temperature 97, blood pressure is 130/7 7. CHEST: Chest reveals decreased breath sounds, no wheezing. CARDIAC: Normal S1, S2, no gallops. ABDOMEN: Soft, no masses. IMPRESSION: 1. Small cell bronchogenic carcinoma, status post chemo. 2. Severe deconditioning status post PEG. 3. Hyponatremia, much improved. Sodium is 134. PLAN: Pulmonary krishna, he can be discharged home anytime. He can see me in the office as needed. Fo llow up with his Oncology.
[2018-01-11 16:09] VITALS: BP 164/62; TEMP 98.3
[2018-01-12] MEDS ORDERED: Levothyroxine 150 MCG TAB PO SCH (06:00)
[2018-01-12] MEDS ORDERED: Levothyroxine 150 MCG TAB PER TUBE SCH (06:00)
--- NOTE | 2018-01-12 14:05 | EKG ---
Test Reason : Blood Pressure : / mmHG Vent. Rate : 113 BPM Atrial Rate : 113 BPM P-R Int : 126 ms QRS Dur : 086 ms QT Int : 332 ms P-R-T Axes : 038 003 060 degrees QTc Int : 455 ms Sinus tachycardia with Premature atrial complexes Otherwise normal ECG Confirmed by SERA LOZADA DO ([id number]), production editor KEILA STYLES ([id number] on 01/12/2018 2:04:31 PM Referred By: Confirmed By:SERA LOZADA DO
--- NOTE | 2018-01-12 17:17 | DIS-2 ---
DATE OF ADMISSION: 01/09/2018 DATE OF DISCHARGE: 01/11/2018 RESIDENT: Dr. Surendra Martinez. ADMITTING ATTENDING: Marleny Johnston M.D. DISCHARGE ATTENDING: Palomo Nj M.D. CONSULTATIONS: Oncology, Pulmonology. PROCEDURES: None. PRIMARY DIAGNOSIS: Hyponatremia. 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 DISCONTINUED MEDICATIONS: None. DISCHARGE MEDICATIONS: Fluticasone, levothyroxine 150 mcg daily, metoprolol 12.5 mg b.i.d., Zofran, prochlorperazine, DuoNeb, melatonin, sertraline. HISTORY OF PRESENT ILLNESS AND HOSPITAL COURSE: This is a 72-year-old male who presented with weakne ss that began the night before admission. The patient fell when he was trying to sit on the toilet. No loss of consciousness. He did not hit his head. No fevers, chills, sweats or dizziness. He had been taking 4-5 cans of supplement per his PEG tube. Reportedly gaining weight with a goal of 7 con tainers per day. Recent diagnosis of lung cancer. On chemotherapy. Had 2 falls prior to presentati on. The patient's hyponatremia was worked up. SIADH was considered, but based on lab work, it did not se em to be the case. The patient had a high a.m. cortisol. Urine sodium was low and serum osmolality was low and so SIADH was less likely. After workup, hyponatremia was thought to be secondary to free water flushes and insufficient G-tube intake. Dietitian and Oncology were consulted who agreed with this assessment. The patient was encouraged to use normal saline flushes and increase his amount of intake to work towards goal of 7 cans of fluid per day per the PEG tube. The patient's sodium incre ased up to 134 from an admit level of 120 throughout the course of the admission. Oncology visited t he patient and suggested changing him to Xeloda for chemotherapy treatment. He will follow up with Azam Quintana in clinic next week. He was evaluated by Pulmonology, stated to be at about his baseline at the time of discharge with Dee. On date of discharge, the patient was able to shower on his own strength and was feeling much stronge r with walking. The patient was discharged home with home oxygen as well as a walker. The patient w ill continue physical therapy and occupational therapy outpatient. DISPOSITION: Stable. DISCHARGE INSTRUCTIONS: 1. Location: Home. 2. Diet: Regular. 3. Activity: As tolerated with walker. 4. Followup: Dr. Quintana next week for chemo. Primary care provider in 2-3 days. Physical therapy, occupational therapy outpatient.
== END 2018-01-11 18:18 | disposition home or self-care (01) | DRG 641 ==
LOC: ERS 11:19 → 2SW 17:53 → OBSVTOIN 22:07
PROVIDERS: ADMIT Family Medicine; ATTEND Family Medicine
DX: E87.1 Hypo-osmolality and hyponatremia (principal); C34.90 Malignant neoplasm of unspecified part of unspecified bronchus or lung; W19.XXXA Unspecified fall, initial encounter; E78.5 Hyperlipidemia, unspecified; I10 Essential (primary) hypertension; F32.9 Major depressive disorder, single episode, unspecified; F41.9 Anxiety disorder, unspecified; K59.00 Constipation, unspecified; R79.89 Other specified abnormal findings of blood chemistry; D53.9 Nutritional anemia, unspecified; R53.1 Weakness; R06.00 Dyspnea, unspecified; R53.81 Other malaise; E89.0 Postprocedural hypothyroidism; Z85.810 Personal history of malignant neoplasm of tongue; Z87.891 Personal history of nicotine dependence; Y92.002 Bathroom of unspecified non-institutional (private) residence as the place of occurrence of the external cause
CPT/HCPCS: 36415; 71045; 71275; 80048; 80053; 82533; 82553; 83930; 83935; 84300; 84439; 84443; 84484; 85025; 85379; 90471; 90662; 90670; 93005; 96360; 96361; G0008; G0009; G8978-GP-CL; G8979-GP-CJ; G8987-GO-CJ; G8988-GO-CI; J7620